=== PATIENT | female | born 1960 | race African-American/Black ===

== ENCOUNTER 2019-04-08 16:25 | Emergency (ER) | payer OTHER ==
[~2019-04-08] VITALS: Ht 149.9 cm; Wt 59.0 kg
[2019-04-08] MEDS ORDERED: ONDANSETRON PF 4 MG/2 ML VIAL. ONE (16:40)
[2019-04-08] MEDS ORDERED: METOCLOPRAMIDE HCL 10 MG/2 ML VIAL. IV ONE (17:00)
[2019-04-08] MEDS ORDERED: ONDANSETRON PF 4 MG/2 ML VIAL. IV ONE (17:00)
[2019-04-08] MEDS ORDERED: MORPHINE SULFATE 10 MG/ML VIAL. IV ONE (17:00)
[2019-04-08] MEDS ORDERED: FAMOTIDINE 20 MG/2 ML VIAL IVP ONE (17:00)
[2019-04-08] MEDS ORDERED: IV NORMAL SALINE 1000ML BAG 1,000 ML IV ONE ×2 (17:00→18:00)
[2019-04-08 17:07] LABS: BASO # 0.1 x10^3/uL (0.0-0.2); BASO % 1 % (0-3); EOS % 0 % (0-3); HEMATOCRIT 40.3 % (36.0-47.0); HEMOGLOBIN 13.8 g/dL (12.0-15.5); LYMPH % 18 % (24-48); MEAN CORPUSCULAR HEMOGLOBIN 33 pg (25-35); MEAN CORPUSCULAR HGB CONC 34 g/dL (31-37); MEAN CORPUSCULAR VOLUME 98 fL (79-100); MONO # 0.2 x10^3/uL (0.0-1.1); MONO % 1 % (0-9); NEUT # 8.9 x10^3uL (1.8-7.7); NEUT % 80 % (31-73); PLATELET COUNT 337 x10^3/uL (140-400); RED BLOOD COUNT 4.12 x10^6/uL (3.50-5.40); RED CELL DISTRIBUTION WIDTH 13.9 % (11.5-14.5); WHITE BLOOD COUNT 11.2 x10^3/uL (4.0-11.0)
[2019-04-08 17:07] LABS: BILIRUBIN,URINE NEGATIVE (NEG); CLARITY,URINE CLEAR; COLOR,URINE YELLOW; NITRITE,URINE NEGATIVE (NEG); PH,URINE 6.5; PROTEIN,URINE 100 mg/dL (NEG-TRACE); UROBILINOGEN,URINE 0.2 mg/dL (0.2 mg/dL)
[2019-04-08 17:13] LABS: BARBITURATES NEG (NEG); BENZODIAZEPINES NEG (NEG); CANNABINOIDS POS (NEG); COCAINE NEG (NEG); METHADONE NEG (NEG); OPIATES NEG (NEG); PHENCYCLIDINE NEG (NEG)
[2019-04-08 17:15] LABS: AMPHETAMINE/METHAMPHETAMINE NEG (NEG); BACTERIA,URINE 0 /HPF (0-FEW); RBC,URINE OCC /HPF (0-2); SQUAMOUS EPITHELIAL CELL,UR FEW /LPF; WBC,URINE OCC /HPF (0-4)
[2019-04-08 17:21] LABS: CALCIUM 9.9 mg/dL (8.5-10.1); CREATININE 0.9 mg/dL (0.6-1.0); GFR 64.3; POTASSIUM 3.4 mmol/L (3.5-5.1)
[2019-04-08 17:28] LABS: ALBUMIN 4.2 g/dL (3.4-5.0); ALBUMIN/GLOBULIN RATIO 0.9 (1.0-1.7); MAGNESIUM 1.9 mg/dL (1.8-2.4); TOTAL BILIRUBIN 0.6 mg/dL (0.2-1.0)
[2019-04-08 17:32] LABS: CREATINE KINASE 58 U/L (26-192)
[2019-04-08] MEDS ORDERED: CONTRAST GIVEN. MC PRN (17:45)
[2019-04-08] MEDS ORDERED: IOHEXOL 300 MG/ML 100ML VIAL. IV ONE (18:00)
--- NOTE | 2019-04-08 18:16 | PHYS DOC ---
Past Medical History Past Medical History: Diabetes-Type II, High Cholesterol, Hypertension (SARAHY NAVA APRN) Past Surgical History: Cancer Surgery, Other Additional Past Surgical Histo: POOR HISTORIAN,ABD SURGERY (SARAHY NAVA APRN) Alcohol Use: None Drug Use: None (SARAHY NAVA APRN) Adult General Chief Complaint Chief Complaint: ABDOMINAL PAIN HPI HPI Patient is a 58 year old female with a history of diabetes type II, hypertension, high cholesterol, who presents today complaining of 10 out of 10 epigastric abdominal pain with nausea vomiting that began today. Patient denies any fever. Patient states she has not used her insulin for couple days. She states she is visiting from a different city. She states she has history of abdominal surgery to remove her spleen. She also states they removed a tumor from her chest. (SARAHY NAVA APRN) Review of Systems Review of Systems Constitutional: Denies fever or chills [] Eyes: Denies change in visual acuity, redness, or eye pain [] HENT: Denies nasal congestion or sore throat [] Respiratory: Denies cough or shortness of breath [] Cardiovascular: No additional information not addressed in HPI [] GI: Reports abdominal pain, nausea, vomiting, denies bloody stools or diarrhea [] : Denies dysuria or hematuria [] Musculoskeletal: Denies back pain or joint pain [] Integument: Denies rash or skin lesions [] Neurologic: Denies headache, focal weakness or sensory changes [] All other systems were reviewed and found to be within normal limits, except as documented in this note. (SARAHY NAVA APRN) Current Medications Current Medications Current Medications Medications (Trade) Dose Ordered Sig/Carissa Start Time Stop Time Status Last Admin Dose Admin Clonidine HCl (Catapres) 0.2 mg 1X ONCE 04/08/19 18:30 04/08/19 18:31 DC 04/08/19 18:06 0.2 MG Famotidine (Pepcid Vial) 20 mg 1X ONCE 04/08/19 17:00 04/08/19 17:03 DC 04/08/19 17:08 20 MG Hydralazine HCl (Apresoline Inj) 10 mg 1X ONCE 04/08/19 19:15 04/08/19 19:16 DC 04/08/19 18:43 10 MG Info (CONTRAST GIVEN -- Rx MONITORING) 1 each PRN DAILY PRN 04/08/19 17:45 04/08/19 19:47 DC Insulin Human Regular (HumuLIN R VIAL) 6 unit 1X ONCE 04/08/19 18:30 04/08/19 18:31 DC 04/08/19 18:08 6 UNIT Iohexol (Omnipaque 300 Mg/ml) 75 ml 1X ONCE 04/08/19 18:00 04/08/19 18:01 DC 04/08/19 18:03 75 ML Metoclopramide HCl (Reglan Vial) 10 mg 1X ONCE 04/08/19 17:00 04/08/19 17:03 DC 04/08/19 17:10 10 MG Morphine Sulfate (Morphine Sulfate) 5 mg 1X ONCE 04/08/19 17:00 04/08/19 17:03 DC 04/08/19 17:11 5 MG Ondansetron HCl (Zofran) 4 mg 1X ONCE 04/08/19 17:00 04/08/19 17:03 DC 04/08/19 17:04 4 MG Sodium Chloride 1,000 ml @ 1,000 mls/hr 1X ONCE 04/08/19 18:00 04/08/19 18:59 DC 04/08/19 18:37 1,000 MLS/HR (ASHOK BOOTHE MD) Allergies Allergies Allergies Coded Allergies Type Severity Reaction Last Updated Verified Penicillins Allergy Unknown Rash 04/08/19 Yes (ASHOK BOOTHE MD) Physical Exam Physical Exam Constitutional: Well developed, well nourished, no acute distress, non-toxic appearance. [] HENT: Normocephalic, atraumatic, bilateral external ears normal, oropharynx moist, no oral exudates, nose normal. [] Eyes: PERRLA, EOMI, conjunctiva normal, no discharge. [] Neck: Normal range of motion, no tenderness, supple, no stridor. [] Cardiovascular:Heart rate regular rhythm, no murmur [] Lungs & Thorax: Bilateral breath sounds clear to auscultation [] Abdomen: Old healed surgical incision noted midline lower abdomen. Bowel sounds normal, soft, slight epigastric tenderness, no right lower quadrant or right upper quadrant tenderness, no masses, no pulsatile masses. [] Skin: Warm, dry, no erythema, no rash. [] Back: No tenderness, no CVA tenderness. [] Extremities: No tenderness, no cyanosis, no clubbing, ROM intact, no edema. [] Neurologic: Alert and oriented X 3, normal motor function, normal sensory function, no focal deficits noted. [] Psychologic: Affect normal, judgement normal, mood normal. [] (SARAHY NAVA APRN) Current Patient Data Vital Signs Vital Signs Date Time Temp Pulse Resp B/P (MAP) Pulse Ox O2 Delivery O2 Flow Rate FiO2 04/08/19 19:32 92 31 205/88 (127) 98 Room Air 04/08/19 16:30 97.7 97.7 (ASHOK BOOTHE MD) Lab Values Laboratory Tests Test 04/08/19 16:35 04/08/19 16:43 04/08/19 16:45 Urine Collection Type Unknown Urine Color Yellow Urine Clarity Clear Urine pH 6.5 Urine Specific [place] 1.025 Urine Protein 100 mg/dL (NEG-TRACE) Urine Glucose (UA) >=1000 mg/dL (NEG) Urine Ketones (Stick) 15 mg/dL (NEG) Urine Blood Negative (NEG) Urine Nitrite Negative (NEG) Urine Bilirubin Negative (NEG) Urine Urobilinogen Dipstick 0.2 mg/dL (0.2 mg/dL) Urine Leukocyte Esterase Negative (NEG) Urine RBC Occ /HPF (0-2) Urine WBC Occ /HPF (0-4) Urine Squamous Epithelial Cells Few /LPF Urine Bacteria 0 /HPF (0-FEW) Urine Opiates Screen Neg (NEG) Urine Methadone Screen Neg (NEG) Urine Barbiturates Neg (NEG) Urine Phencyclidine Screen Neg (NEG) Urine Amphetamine/Methamphetamine Neg (NEG) Urine Benzodiazepines Screen Neg (NEG) Urine Cocaine Screen Neg (NEG) Urine Cannabinoids Screen Pos (NEG) Urine Ethyl Alcohol Neg (NEG) Glucose (Fingerstick) 384 mg/dL (70-99) H White Blood Count 11.2 x10^3/uL (4.0-11.0) H Red Blood Count 4.12 x10^6/uL (3.50-5.40) Hemoglobin 13.8 g/dL (12.0-15.5) Hematocrit 40.3 % (36.0-47.0) Mean Corpuscular Volume 98 fL (79-100) Mean Corpuscular Hemoglobin 33 pg (25-35) Mean Corpuscular Hemoglobin Concent 34 g/dL (31-37) Red Cell Distribution Width 13.9 % (11.5-14.5) Platelet Count 337 x10^3/uL (140-400) Neutrophils (%) (Auto) 80 % (31-73) H Lymphocytes (%) (Auto) 18 % (24-48) L Monocytes (%) (Auto) 1 % (0-9) Eosinophils (%) (Auto) 0 % (0-3) Basophils (%) (Auto) 1 % (0-3) Neutrophils # (Auto) 8.9 x10^3uL (1.8-7.7) H Lymphocytes # (Auto) 2.0 x10^3/uL (1.0-4.8) Monocytes # (Auto) 0.2 x10^3/uL (0.0-1.1) Eosinophils # (Auto) 0.0 x10^3/uL (0.0-0.7) Basophils # (Auto) 0.1 x10^3/uL (0.0-0.2) Prothrombin Time 12.0 SEC (11.7-14.0) Prothrombin Time INR 0.9 (0.8-1.1) Sodium Level 142 mmol/L (136-145) Potassium Level 3.4 mmol/L (3.5-5.1) L Chloride Level 100 mmol/L (98-107) Carbon Dioxide Level 28 mmol/L (21-32) Anion Gap 14 (6-14) Blood Urea Nitrogen 16 mg/dL (7-20) Creatinine 0.9 mg/dL (0.6-1.0) Estimated GFR (Cockcroft-Gault) 64.3 BUN/Creatinine Ratio 18 (6-20) Glucose Level 412 mg/dL (70-99) H Calcium Level 9.9 mg/dL (8.5-10.1) Magnesium Level 1.9 mg/dL (1.8-2.4) Total Bilirubin 0.6 mg/dL (0.2-1.0) Aspartate Amino Transferase (AST) 12 U/L (15-37) L Alanine Aminotransferase (ALT) 28 U/L (14-59) Alkaline Phosphatase 133 U/L (46-116) H Creatine Kinase 58 U/L (26-192) Creatine Kinase MB (Mass) 0.7 ng/mL (0.0-3.6) Creatine Kinase MB Relative Index % (0-4) Troponin I Quantitative < 0.017 ng/mL (0.000-0.055) HQ-Roy-L-Type Natriuretic Peptide 408 pg/mL (0-124) H Total Protein 9.0 g/dL (6.4-8.2) H Albumin 4.2 g/dL (3.4-5.0) Albumin/Globulin Ratio 0.9 (1.0-1.7) L Lipase 88 U/L (73-393) Thyroid Stimulating Hormone (TSH) 1.119 uIU/mL (0.358-3.74) Laboratory Tests 04/08/19 16:45 Laboratory Tests 04/08/19 16:45 (ASHOK BOOTHE MD) EKG EKG [] (SARAHY NAVA APRN) Radiology/Procedures Radiology/Procedures []PROCEDURE: CT ABD PELV W/ IV CONTRST ONLY CT abdomen pelvis with contrast dated 04/08/2019. No comparison available. CLINICAL INDICATION: Abdominal pain. TECHNIQUE: Contiguous axial imaging of the abdomen and pelvis performed after the intravenous administration of 75 cc Isovue-300. One or more of the following individualized dose reduction techniques were utilized for this examination: 1. Automated exposure control 2. Adjustment of the mA and/or kV according to patient size 3. Use of iterative reconstruction technique FINDINGS: Limited images of lung bases show mild groundglass density in the lower lobes, nonspecific. There are a few small air-filled cysts in the right lower lobe. Heart size mildly enlarged. Coronary artery calcifications. No pleural or pericardial effusion. Liver is homogeneous in attenuation. No apparent mass. Biliary tree normal in caliber. Gallbladder unremarkable. Spleen is surgically absent. There is also been resection of the pancreatic tail. Pancreatic head neck and residual body are unremarkable. The adrenal glands are unremarkable. Kidneys are symmetric in size and enhancement. No hydronephrosis. Unopacified GI tract normal in caliber and contour. No focal bowel wall thickening. No inflammatory stranding in the mesentery. The appendix is normal in caliber. No ascites or lymphadenopathy. There are extensive atherosclerotic changes of the abdominal aorta without evidence of aneurysm. Calcific plaquing of the celiac and SMA origins with suspected moderate to high-grade narrowing of the celiac. There is also suspected high-grade narrowing of the left renal artery origin and moderate to high-grade narrowing of the right renal artery origin. Extensive calcific plaquing of the common iliac arteries resulting in moderate to high-grade stenosis bilaterally. Images of the pelvis show nondistended urinary bladder. Uterus is unremarkable. No free fluid or pelvic lymphadenopathy. There is evidence of prior distal small bowel resection. Bone windows show marked destructive changes at the right acetabulum and proximal right femur with no visible femoral head or neck. Linear defect within the proximal femur likely related to prior bonilla placement. There are also rounded area of increased density laterally that could represent graft material or antibiotic seeds. There is evidence of prior total hip arthroplasty in the left. Spondylotic changes of the lower lumbar spine fatty atrophy of the gluteal and proximal thigh muscles on the right. IMPRESSION: 1. No acute abnormality of abdomen or pelvis. Normal appendix. 2. Consistent destructive changes at the right hip, indeterminate. This could be related to acute or chronic infection and/or prior trauma. Correlate clinically. 3. Extensive atherosclerotic calcifications with cysts possible areas of high-grade stenosis involving the celiac artery, bilateral renal artery and bilateral common iliac artery. If indicated, CTA could better evaluate. 4. Status post splenectomy and partial pancreatectomy. Electronically signed by: Naresh Goel MD (04/08/2019 6:25 PM) [facility] DICTATED and SIGNED BY: NARESH GOEL MD DATE: 04/08/191824 (SARAHY NAVA APRN) Course & Med Decision Making Course & Med Decision Making Pertinent Labs and Imaging studies reviewed. (See chart for details) This is a 58-year-old female patient presented to the ED today with nausea vomiting and abdominal pain, symptoms began today. Patient is actively vomiting on arrival to the ED. She has history of diabetes type 2 and has not used her insulin for couple days. CBC with a WBC of 11.2, CMP with glucose of 412, anion gap is normal. Urine analysis is negative for infection. CT of the abdomen and pelvic was negative for any acute findings. Patient's blood pressures have been running high in the low 200s over 70s to 90s. She has been given a couple liters of IV fluids and insulin in the ED. I recomme nded admission considering she was still vomiting, she states she is from [place] and is supposed to leave tomorrow and there is no way she can stay in the hospital. She signed out AMA. She is alert oriented Able to Make Her Own Decisions, she understands this risk of leaving AMA including and disability. (SARAHY NAVA APRN) Course & Med Decision Making Staff Physician Addendum: I was working in the ER during the course of this patient's visit. I was available for consultation as needed, but I was not directly involved in the care of this patient. (ASHOK BOOTHE MD) Dragon Disclaimer Dragon Disclaimer This electronic medical record was generated, in whole or in part, using a voice recognition dictation system. (SARAHY NAVA APRN) Departure Departure Impression: Primary Impression: Hyperglycemia Additional Impressions: Nausea and vomiting Abdominal pain Accelerated hypertension Disposition: 07 AGAINST MEDICAL ADVICE Condition: STABLE Referrals: UNKNOWN PCP NAME (PCP) Follow-up with your doctor Patient Instructions: Hyperglycemia, [id number], Nausea and Vomiting, [id number] Additional Instructions: You were evaluated in the emergency room for abdominal pain with nausea and vomiting, your glucose was high. Ensure you are using your insulin. Please follow-up with your doctor as soon as possible. Please push fluids. Come back to the ED at any point symptoms worsen. Scripts Ondansetron Hcl (ZOFRAN) 4 Mg Tablet 1 TAB PO Q6HRS, #20 TAB Prov: SARAHY NAVA APRN 04/08/19 Problem Qualifiers Additional Impressions: Nausea and vomiting Vomiting type: unspecified Vomiting Intractability: unspecified Qualified Codes: R11.2 - Nausea with vomiting, unspecified Abdominal pain Abdominal location: unspecified location Qualified Codes: R10.9 - Unspecified abdominal pain SARAHY NAVA APRN Apr 08, 2019 18:16 ASHOK BOOTHE MD Apr 08, 2019 23:09
--- NOTE | 2019-04-08 18:28 | RAD ---
CT abdomen pelvis with contrast dated 04/08/2019. No comparison available. CLINICAL INDICATION: Abdominal pain. TECHNIQUE: Contiguous axial imaging of the abdomen and pelvis performed after the intravenous administration of 75 cc Isovue-300. One or more of the following individualized dose reduction techniques were utilized for this examination: 1. Automated exposure control 2. Adjustment of the mA and/or kV according to patient size 3. Use of iterative reconstruction technique FINDINGS: Limited images of lung bases show mild groundglass density in the lower lobes, nonspecific. There are a few small air-filled cysts in the right lower lobe. Heart size mildly enlarged. Coronary artery calcifications. No pleural or pericardial effusion. Liver is homogeneous in attenuation. No apparent mass. Biliary tree normal in caliber. Gallbladder unremarkable. Spleen is surgically absent. There is also been resection of the pancreatic tail. Pancreatic head neck and residual body are unremarkable. The adrenal glands are unremarkable. Kidneys are symmetric in size and enhancement. No hydronephrosis. Unopacified GI tract normal in caliber and contour. No focal bowel wall thickening. No inflammatory stranding in the mesentery. The appendix is normal in caliber. No ascites or lymphadenopathy. There are extensive atherosclerotic changes of the abdominal aorta without evidence of aneurysm. Calcific plaquing of the celiac and SMA origins with suspected moderate to high-grade narrowing of the celiac. There is also suspected high-grade narrowing of the left renal artery origin and moderate to high-grade narrowing of the right renal artery origin. Extensive calcific plaquing of the common iliac arteries resulting in moderate to high-grade stenosis bilaterally. Images of the pelvis show nondistended urinary bladder. Uterus is unremarkable. No free fluid or pelvic lymphadenopathy. There is evidence of prior distal small bowel resection. Bone windows show marked destructive changes at the right acetabulum and proximal right femur with no visible femoral head or neck. Linear defect within the proximal femur likely related to prior bonilla placement. There are also rounded area of increased density laterally that could represent graft material or antibiotic seeds. There is evidence of prior total hip arthroplasty in the left. Spondylotic changes of the lower lumbar spine fatty atrophy of the gluteal and proximal thigh muscles on the right. IMPRESSION: 1. No acute abnormality of abdomen or pelvis. Normal appendix. 2. Consistent destructive changes at the right hip, indeterminate. This could be related to acute or chronic infection and/or prior trauma. Correlate clinically. 3. Extensive atherosclerotic calcifications with cysts possible areas of high-grade stenosis involving the celiac artery, bilateral renal artery and bilateral common iliac artery. If indicated, CTA could better evaluate. 4. Status post splenectomy and partial pancreatectomy. Electronically signed by: Naresh Goel MD (04/08/2019 6:25 PM) [facility]
[2019-04-08] MEDS ORDERED: INSULIN REGULAR 100 UNIT/ML 3ML VIAL. IV ONE (18:30)
[2019-04-08] MEDS ORDERED: cloNIDine HCL 0.1 MG TABLET PO ONE (18:30)
[2019-04-08] MEDS ORDERED: hydrALAZINE 20 MG/ML VIAL. IVP ONE (19:15)
[2019-04-08 19:32] VITALS: BP 205/88
[2019-04-08] MEDS ORDERED: ONDA4TAB7 PO (19:36)
--- NOTE | 2019-04-09 08:34 | EKG ---
[facility] [address] [place] [address] Test Date: 2019-04-08 Test Time: 16:48:24 Pat Name: MARI COX Department: Room: Gender: F Business Applications Developer: : [id number] Requested By: SARAHY NAVA Order Number: [id number] Reading MD: Measurements Intervals [place] Rate: 79 P: -41 OR: 138 QRS: 31 QRSD: 70 T: 56 QT: 404 QTc: 464 Interpretive Statements SUPRAVENTRICULAR RHYTHM NON SPECIFIC T ABNORMALITY BORDERLINE ECG No previous ECG available for comparison
== END 2019-04-08 19:46 | disposition left against medical advice (07) ==
LOC: ER 16:25
DX: E11.65 Type 2 diabetes mellitus with hyperglycemia (principal); R10.13 Epigastric pain; R11.2 Nausea with vomiting, unspecified; E78.00 Pure hypercholesterolemia, unspecified; I10 Essential (primary) hypertension; Z79.4 Long term (current) use of insulin; Z98.890 Other specified postprocedural states; Z88.0 Allergy status to penicillin
CPT/HCPCS: 36415; 74177; 80053; 80307; 81001; 82553; 82962; 83690; 83735; 83880; 84443; 84484; 85025; 85610; 93005; 96361; 96374; 96375; 99285; J0360; J1815; J2270; J2405; J2765; J3490; J7030; Q9967